=== PATIENT | female | born 1970 | race Caucasian/White ===

== ENCOUNTER 2018-04-03 07:24 | Day surgery (SDC) | payer BC ==
[~2018-04-03] VITALS: Ht 165.1 cm; Wt 109.1 kg
[~2018-04-03 07:24] MED LIST: CHOL200052 PO; IBUP200C8 PO; LOSA50TA7 PO; RANI150T23 PO
[2018-04-03] MEDS ORDERED: ACETAMINOPHEN 500 MG TABLET PO ONE (08:00)
[2018-04-03] MEDS ORDERED: SCOPOLAMINE PATCH, 1.5MG PATCH.TD72 TD ONE (08:00)
[2018-04-03] MEDS ORDERED: GABAPENTIN 300 MG CAPSULE PO ONE (08:00)
[2018-04-03] MEDS ORDERED: OXYcodone IR 5MG TABLET PO ONE (08:00)
[2018-04-03] MEDS ORDERED: LACTATED RINGERS 1,000 ML IV SCH (08:13)
[2018-04-03 08:26] LABS: HCG UR SG 1.004 (1.003-1.030)
[2018-04-03] MEDS ORDERED: INDIGO CARMINE 0.8%, 5ML ONE ×2 (08:38→08:43)
[2018-04-03] MEDS ORDERED: BUPIVACAINE 0.25% ONE (08:38)
[2018-04-03] MEDS ORDERED: INDOCYANINE GREEN 25 MG VIAL ONE ×2 (08:38→08:39)
[2018-04-03] MEDS ORDERED: FENTANYL PF 250 MCG/5ML ONE (08:39)
[2018-04-03] MEDS ORDERED: MIDAZOLAM 1 MG/ML, 2ML ONE (08:39)
[2018-04-03] MEDS ORDERED: PROPOFOL 50 ML ONE (08:40)
[2018-04-03] MEDS ORDERED: ROCURONIUM 10 MG/ML,10ML ONE (09:25)
[2018-04-03] MEDS ORDERED: DEXAMETHASONE 4 MG/ML, 1ML ONE (09:25)
[2018-04-03] MEDS ORDERED: ONDANSETRON 2MG/ML, 2ML ONE (09:25)
[2018-04-03] MEDS ORDERED: GLYCOPYRROLATE 0.2MG/1ML, 5ML ONE (09:25)
[2018-04-03] MEDS ORDERED: SUCCINYLCHOLINE 20 MG/ML, 10ML ONE (09:25)
[2018-04-03] MEDS ORDERED: CLINDAMYCIN 150 MG/ML, 6ML ONE (09:36)
[2018-04-03] MEDS ORDERED: MORPHINE SULFATE 4 MG/ML, 1ML IVPush PRN (11:00)
[2018-04-03] MEDS ORDERED: FENTANYL PF 100 MCG/2ML IV PRN (11:00)
[2018-04-03] MEDS ORDERED: PROMETHAZINE 25 MG SUPP PR PRN (11:00)
[2018-04-03] MEDS ORDERED: DIPHENHYDRAMINE 50 MG/ML, 1ML IVPush PRN (11:00)
[2018-04-03] MEDS ORDERED: PROMETHAZINE 12.5 MG SUPP PR PRN (11:00)
[2018-04-03] MEDS ORDERED: EPHEDRINE 50 MG/ML, 1ML IM PRN (11:00)
[2018-04-03] MEDS ORDERED: EPHEDRINE 50 MG/ML, 1ML IVPush PRN (11:00)
[2018-04-03] MEDS ORDERED: OXYcodone 5 MG/5 ML ORAL.SOL UDC PO PRN (11:00)
[2018-04-03] MEDS ORDERED: ONDANSETRON 2MG/ML, 2ML IV PRN (11:00)
[2018-04-03] MEDS ORDERED: MIDAZOLAM 1 MG/ML, 2ML IV PRN (11:00)
[2018-04-03] MEDS ORDERED: MEPERIDINE/PF 25MG/0.5ML IVPush PRN (11:00)
[2018-04-03] MEDS ORDERED: PROMETHAZINE 25 MG/ML, 1ML IV PRN (11:00)
[2018-04-03] MEDS ORDERED: LABETALOL 5MG/ML, 20ML IV PRN (11:00)
[2018-04-03] MEDS ORDERED: OXYcodone 5 MG/5 ML ORAL.SOL UDC ONE (12:42)
[2018-04-03] MEDS ORDERED: MEPERIDINE/PF 50 MG/ML ONE (12:46)
== END 2018-04-03 16:05 | disposition home or self-care (01) ==
LOC: OUT 07:24
PROVIDERS: ATTEND Specialist
DX: D25.0 Submucous leiomyoma of uterus (principal); D27.1 Benign neoplasm of left ovary; N92.0 Excessive and frequent menstruation with regular cycle; N88.8 Other specified noninflammatory disorders of cervix uteri; N80.0 Endometriosis of uterus; Z88.8 Allergy status to other drugs, medicaments and biological substances
CPT/HCPCS: 58571; 81025; 88307; J0330; J1100; J2175; J2250; J2405; J2704; J3010; J3490; J7120; S2900